=== PATIENT | male | born 1975 | race African-American/Black ===

== ENCOUNTER 2019-02-17 12:00 | Emergency (ER) | payer OTHER ==
[~2019-02-17] VITALS: Ht 177.8 cm; Wt 113.4 kg
[2019-02-17 12:30] VITALS: BP 199/113
--- NOTE | 2019-02-17 13:10 | RAD ---
CHEST PA LATERAL History: Cough Comparison: None. Findings: Frontal and lateral views of chest were obtained. The cardiomediastinal silhouette is normal. Pulmonary vasculature is normal. The lungs are clear. No pleural effusion or pneumothorax is seen. There is no acute bone abnormality. IMPRESSION: No acute cardiopulmonary process. Electronically signed by: Jarek Bates MD (02/17/2019 1:07 PM) [facility]
[2019-02-17 13:31] LABS: INFLUENZA A PATIENT NEGATIVE (NEGATIVE); INFLUENZA B PATIENT NEGATIVE (NEGATIVE)
--- NOTE | 2019-02-17 13:56 | PHYS DOC ---
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 Patient denies any fever. (FLORENCIA BOOTH APRN) Review of Systems Review of Systems Constitutional: Denies fever or chills [] Eyes: Denies change in visual acuity, redness, or eye pain [] HENT: Denies nasal congestion or sore throat [] Respiratory: reports cough, deniesshortness of breath [] Cardiovascular: No additional information not addressed in HPI [] GI: Denies abdominal pain, nausea, vomiting, bloody stools or diarrhea [] : Denies dysuria or hematuria [] Musculoskeletal: Denies back pain or joint pain [] Integument: Denies rash or skin lesions [] Neurologic: Denies headache, focal weakness or sensory changes [] All other systems were reviewed and found to be within normal limits, except as documented in this note. 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 [] HENT: Normocephalic, atraumatic, bilateral external ears normal, oropharynx moist, no oral exudates, nose normal. [] Eyes: PERRLA, EOMI, conjunctiva normal, no discharge. [] Neck: Normal range of motion, no tenderness, supple, no stridor. [] Cardiovascular:Heart rate regular rhythm, no murmur [] Lungs & Thorax: Bilateral breath sounds clear to auscultation [] Abdomen: Bowel sounds normal, soft, no tenderness, no masses, no pulsatile masses. [] Skin: Warm, dry, no erythema, no rash. [] Back: No tenderness, no CVA tenderness. [] Extremities: No tenderness, no cyanosis, no clubbing, ROM intact, no edema. [] Neurologic: Alert and oriented X 3, normal motor function, normal sensory function, no focal deficits noted. [] Psychologic: Affect normal, judgement normal, mood normal. [] (FLORENCIA BOOTH APRN) Current Patient Data Vital Signs Vital Signs Date Time Temp Pulse Resp B/P (MAP) Pulse Ox O2 Delivery O2 Flow Rate FiO2 02/17/19 12:30 98.7 82 18 199/113 (141) 97 Room Air 98.7 (NIRU GLOVER DO) Lab Values Laboratory Tests Test 02/17/19 12:30 Influenza Type A Antigen Negative (NEGATIVE) Influenza Type B Antigen Negative (NEGATIVE) (NIRU GLOVER DO) EKG EKG [] (FLORENCIA BOOTH APRN) Radiology/Procedures Radiology/Procedures []PROCEDURE: CHEST PA & LATERAL CHEST PA LATERAL History: Cough Comparison: None. Findings: Frontal and lateral views of chest were obtained. The cardiomediastinal silhouette is normal. Pulmonary vasculature is normal. The lungs are clear. No pleural effusion or pneumothorax is seen. There is no acute bone abnormality. IMPRESSION: No acute cardiopulmonary process. Electronically signed by: Jarek Thornton MD (02/17/2019 1:07 PM) [facility] DICTATED and SIGNED BY: JAREK THORNTON MD DATE: 02/17/19 1309 (FLORENCIA BOOTH APRN) Course & Med Decision Making Course & Med Decision Making Pertinent Labs and Imaging studies reviewed. (See chart for details) This is a 43-year-old male patient presented to the ED today with cough for 3 days. Negative influenza A or B, negative chest x-ray. Symptoms are likely viral. Supportive care measures recommended. (FLORENCIA BOOTH APRN) Dragon Disclaimer Dragon Disclaimer This electronic medical record was generated, in whole or in part, using a voice recognition dictation system. (FLORENCIA BOOTH APRN) Departure Departure Impression: Primary Impression: Cough Disposition: 01 HOME, SELF-CARE Condition: STABLE Referrals: BRUCE RODRIGEZ DO (PCP) follow up in 1-2 weeks Patient Instructions: Cough, Adult, [id number] Additional Instructions: You were evaluated in the emergency room with symptoms consistent of a viral illness. Your chest x-ray is negative for any acute findings. Your Influenza test is negative. Use the prescribed medications as ordered. Please follow-up with your own doctor in 1-2 weeks if symptoms continue. Scripts Albuterol Sulfate (PROAIR HFA INHALER) 8.5 Gm Hfa.aer.ad 2 PUFF IH PRN Q4-6HRS PRN for wheezing for 21 Days, #1 INHALER 0 Refills Prov: FLORENCIA BOOTH APRN 02/17/19 Benzonatate (TESSALON PERLE) 100 Mg Capsule 1 CAP PO TID, #30 CAP Prov: FLORENCIA BOOTH APRN 02/17/19 Attending Signature Attending Signature I have reviewed the PA/INSURANCE WRITER's note and plan of care. I was available for consultation as needed during the patient's visit in the emergency department. I agree with the clinical impression, plan, and disposition. (NIRU GLOVER DO) FLORENCIA BOOTH APRN Feb 17, 2019 13:56 NIRU GLOVER DO Feb 18, 2019 06:16
[2019-02-17] MEDS ORDERED: ALBU2.5V8 IH (14:01)
[2019-02-17] MEDS ORDERED: BENZ100C PO (14:01)
== END 2019-02-17 14:06 | disposition home or self-care (01) ==
LOC: ER 12:00
DX: R05 Cough (principal); I10 Essential (primary) hypertension
CPT/HCPCS: 71046; 87804; 99285